=== PATIENT | female | born 1975 | race Asian ===

== ENCOUNTER 2020-04-18 21:52 | Inpatient (IN) | payer BC ==
[~2020-04-18] VITALS: Ht 157.5 cm; Wt 47.6 kg
[2020-04-18 22:30] LABS: BASOPHIL % 0.3 % (0-2); PLATELET COUNT 202 x10^3mcL (130-400); RED CELL DISTRIBUTION WIDTH 12.9 % (11.5-14.5)
[2020-04-18 23:05] LABS: CALCIUM 8.1 mg/dL (8.5-10.1); CARBON DIOXIDE 24.6 mmol/L (21-32); CHLORIDE SERUM 105 mmol/L (98-107); CREATININE SERUM 0.7 mg/dL (0.6-1.0); GFR1 > 60 mL/min; GLUCOSE SERUM 107 mg/dL (74-106); POTASSIUM SERUM 3.6 mmol/L (3.5-5.1); SODIUM SERUM 141 mmol/L (136-145)
[2020-04-18 23:11] LABS: ALBUMIN 3.7 g/dL (3.4-5.0); ALKALINE PHOSPHATASE 61 U/L (46-116); ALT/SGPT 21 U/L (14-59); AMYLASE 83 U/L (25-115); AST/SGOT 18 U/L (15-37); BILIRUBIN TOTAL 0.4 mg/dL (0.20-1.00); LIPASE 150 IU/L (73-393); TOTAL PROTEIN, SERUM 6.7 g/dL (6.4-8.2)
[2020-04-18 23:18] LABS: T4(THYROXINE) 21.3 ug/dL (4.7-13.3)
[2020-04-19 02:42] LABS: AMPHETAMINE QUAL UR NONE DETECTED (See below)
[2020-04-19 03:06] VITALS: BP 110/69
[2020-04-19 03:07] LABS: CHOLESTEROL/HDL RATIO 2.4; PHOSPHOROUS 2.3 mg/dL (2.5-4.9)
[2020-04-19 03:10] VITALS: Ht 157.5 cm; Wt 47.6 kg
[2020-04-19 06:08] VITALS: BP 109/71
[2020-04-19 08:13] LABS: BASOPHIL % 0.2 % (0-2); PLATELET COUNT 214 x10^3mcL (130-400); RED CELL DISTRIBUTION WIDTH 13.2 % (11.5-14.5)
[2020-04-19 08:18] LABS: CALCIUM 8.6 mg/dL (8.5-10.1); CARBON DIOXIDE 24.8 mmol/L (21-32); CHLORIDE SERUM 107 mmol/L (98-107); CREATININE SERUM 0.6 mg/dL (0.6-1.0); GFR1 > 60 mL/min; GLUCOSE SERUM 105 mg/dL (74-106); PHOSPHOROUS 3.7 mg/dL (2.5-4.9); POTASSIUM SERUM 3.9 mmol/L (3.5-5.1); SODIUM SERUM 142 mmol/L (136-145)
[2020-04-19] MEDS ORDERED: PROPRANOLOL HCL10 MG PO (13:04)
[2020-04-19] MEDS ORDERED: PTU PO (13:05)
[2020-04-19 13:12] VITALS: BP 121/71
[2020-04-19 16:50] VITALS: BP 96/55
== END 2020-04-19 19:00 | disposition home or self-care (01) | DRG 645 ==
LOC: ED 21:52 → DU 04-19 00:01
PROVIDERS: Emergency Medicine; ADMIT Family Medicine; ATTEND Family Medicine
DX: E05.90 Thyrotoxicosis, unspecified without thyrotoxic crisis or storm (principal); M94.0 Chondrocostal junction syndrome [Tietze]; R00.0 Tachycardia, unspecified; D64.9 Anemia, unspecified; Z88.0 Allergy status to penicillin; Z90.49 Acquired absence of other specified parts of digestive tract; E83.51 Hypocalcemia; K52.29 Other allergic and dietetic gastroenteritis and colitis
CPT/HCPCS: 83880; C9113; G0378; J1100; J1800; J1885; J2060; J2405; J7030; Q0092